=== PATIENT | female | born 1990 | race Caucasian/White ===

== ENCOUNTER 2017-11-21 20:51 | Emergency (ER) | payer SELFPAY ==
[~2017-11-21 20:51] MED LIST: CLON1TAB PO; FLAG500T PO
[2017-11-21 21:04] VITALS: BP 174/90; PULSE 106; RESP 20; TEMP 98.3; O2SAT 100
[2017-11-21 21:20] LABS: BILIRUBIN, URINE NEG (NEG); BLOOD, URINE NEG (NEG); GLUCOSE,URINE NEG (NEG); KETONE, URINE NEG (NEG); NITRITE,URINE NEG (NEG); PH, URINE 5.5 (5.0-8.5); URINE COLOR YELLOW (YELLW/STRAW); URINE LEUKOCYTE ESTERASE NEG (NEG)
[2017-11-21 21:25] LABS: MUCUS URINE MOD /lpf (OCC); RBC, URINE 0-3 /hpf (0-3); SQUAMOUS EPITHELIAL CELL URINE 0-5 /hpf (0-5)
[2017-11-21] MEDS ORDERED: CLON1TAB PO (21:54)
--- NOTE | 2017-11-21 21:54 | PD ---
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 She just finished her menses 2 days ago but continues to have the same order. She has a history of in the past BV she does not think she could be now. She has no cramps no nausea no vomiting or diarrhea. Her and her recently just got over the flu this information was offered by the patient does describe feeling exhausted and tired and body aches denies dysuria denies Frequency denies flank pain she has not seen another doctor for this complaint, she tried to use a pH balancing suppository vaginal [id number] without alleviation of her symptoms PFSH Past Medical History Bipolar Disorder: Yes Anxiety: Yes Depression: Yes Cancer: No Diminished Hearing: No Endocrine: No Immune Disorder: No Implanted Vascular Access Dvce: No Psychiatric: Yes Integumentary: Yes (MRSA) Tetanus Vaccination: < 5 Years ?: Not LMP: 11/16/17 Menopausal: No : 4 Para: 1 Miscarriage: 1 : 1 Ectopic : No Ovarian Cysts: No Dilation and Curettage (D&C): No Tubal Ligation: No Past Surgical History Surgical History: No Previous Surgery Section: No Hysterectomy: No Other Surgery: No Social History Alcohol Use: No Tobacco Use: Yes Substance Use: Yes (COCAINE.) Allergies-Medications (Allergen,Severity, Reaction): Coded Allergies: *MDRO Multi-Drug Resistant Organism (Verified Adverse Reaction, Unknown, ) MRSA PCR (nares) positive - 12/19/15 Reported Meds & Prescriptions Reported Meds & Active Scripts Active Reported Clonazepam 1 Mg Tab 1 Mg PO Q12HR Review of Systems Except as stated in HPI: all other systems reviewed are Neg Genitourinary: Positive: Discharge Physical Exam Narrative GENERAL: Patient nontoxic appearing awake alert SKIN: Warm and dry. HEAD: Atraumatic. Normocephalic. EYES: Pupils equal and round. No scleral icterus. No injection or drainage. ENT: No nasal bleeding or discharge. Mucous membranes pink and moist. NECK: Trachea midline. No JVD. CARDIOVASCULAR: Regular rate and rhythm. RESPIRATORY: No accessory muscle use. Clear to auscultation. Breath sounds equal bilaterally. GASTROINTESTINAL: Abdomen soft, non-tender, nondistended. Hepatic and splenic margins not palpable. Pelvic: Patient has a yellowish discharge snotty like at the cervix introitus there is no blood she has no CMT no fullness in the adnexa with bimanual MUSCULOSKELETAL: Extremities without clubbing, cyanosis, or edema. No obvious deformities. NEUROLOGICAL: Awake and alert. No obvious cranial nerve deficits. Motor grossly within normal limits. Five out of 5 muscle strength in the arms and legs. Normal speech. PSYCHIATRIC: Appropriate mood and affect; insight and judgment normal. Data Data Last Documented VS Vital Signs Date Time Temp Pulse Resp B/P (MAP) Pulse Ox O2 Delivery O2 Flow Rate FiO2 11/21/17 21:04 98.3 106 20 174/90 (118) 100 Orders Orders Urinalysis - C+S If Indicated (11/21/17 21:09) Ed Urine Pregnancytest Poc (11/21/17 21:11) Wet Prep Profile (11/21/17 22:46) Gc And Chlamydia Pcr (11/21/17 22:46) Metronidazole (Flagyl) (11/21/17 23:45) Labs Laboratory Tests Test 11/21/17 21:14 11/21/17 22:50 Urine Color YELLOW Urine Turbidity CLEAR Urine pH 5.5 Urine Specific [place] GREATER/EQUAL 1.030 Urine Protein NEG mg/dL Urine Glucose (UA) NEG mg/dL Urine Ketones NEG mg/dL Urine Occult Blood NEG Urine Nitrite NEG Urine Bilirubin NEG Urine Urobilinogen 0.2 MG/DL Urine Leukocyte Esterase NEG Urine RBC 0-3 /hpf Urine WBC 3-5 /hpf Urine Squamous Epithelial Cells 0-5 /hpf Urine Mucus MOD /lpf Microscopic Urinalysis Comment CULT NOT INDICATED Clue Cells (Wet Prep) PRESENT Vaginal Trichomonas (Wet Prep) NONE SEEN Vaginal Yeast (Wet Prep) NONE SEEN MDM Medical Decision Making Medical Screen Exam Complete: Yes Emergency Medical Condition: Yes Differential Diagnosis Differential diagnoses include Chlamydia gonorrhea cervicitis versus Trichomonas versus BV versus vaginitis NOS Narrative Course Wet prep shows clue cells I will treat her with metronidazole, p.o. THE CULTURES FOR GC chlamydia pending...... UA is negative Her discharge diagnosis is bacterial vaginosis follow-up outpatient [facility] flagyl PO for 1 week Diagnosis Primary Impression: Bacterial vaginosis Patient Instructions: Bacterial Vaginosis (ED), General Instructions Jorge Espinal MD Nov 21, 2017 21:54
[2017-11-21] MEDS ORDERED: metroNIDAZOLE 500 MG TAB PO ONE (23:45)
[2017-11-21] MEDS ORDERED: METR1TAB76 PO (23:51)
[2017-11-21 23:57] VITALS: BP 152/88
== END 2017-11-21 23:59 | disposition home or self-care (01) ==
LOC: PHED 20:51
DX: N76.0 Acute vaginitis (principal)
CPT/HCPCS: 81001; 84703; 87210; 87491; 87591; 99284

== ENCOUNTER 2018-03-09 03:51 | Emergency (ER) | payer OTHER ==
[~2018-03-09 03:51] MED LIST changes: -FLAG500T PO; +METR1TAB76 PO
[2018-03-09 03:53] VITALS: BP 122/69; PULSE 79; RESP 18; TEMP 98.1; TEMP 99.2; O2SAT 100
[2018-03-09 04:20] VITALS: BP 113/67; PULSE 81; RESP 16; O2SAT 100
[2018-03-09 05:09] LABS: AMORPHOUS SEDIMENT, URINE RARE; BACTERIA, URINE RARE /hpf; BILIRUBIN, URINE NEG (NEG); BLOOD, URINE NEG (NEG); GLUCOSE,URINE NEG (NEG); HYALINE CAST, URINE 3 /lpf (RARE); KETONE, URINE NEG (NEG); MUCUS URINE FEW /lpf (OCC); NITRITE,URINE NEG (NEG); SQUAMOUS EPITHELIAL CELL URINE 2 /hpf (0-5); URINE COLOR YELLOW (YELLW/STRAW); URINE LEUKOCYTE ESTERASE NEG (NEG)
[2018-03-09 05:13] LABS: ALBUMIN 3.9 GM/DL (3.4-5.0); ALT (GPT) 36 U/L (10-53); AST (GOT) 25 U/L (15-37); BICARBONATE 22.9 MEQ/L (21.0-32.0); BLOOD UREA NITROGEN 13 MG/DL (7-18); CHLORIDE 107 MEQ/L (98-107); CREATININE 0.75 MG/DL (0.50-1.00); GLOMERULAR FILTRATION RATE 92 ML/MIN (>89); GLUCOSE,RANDOM 78 MG/DL (74-106); SODIUM (NA) 138 MEQ/L (136-145)
[2018-03-09 05:30] LABS: ALKALINE PHOSPHATASE 104 U/L (45-117); TOTAL BILIRUBIN ADULT 0.3 MG/DL (0.2-1.0)
--- NOTE | 2018-03-09 06:36 | PD ---
HPI . pt has abdo pain and Chief Complaint: Abdominal Pain Time Seen by Provider: 03:57 Travel History International Travel<30 days: No Contact w/Intl Traveler<30days: No Traveled to known affect area: No History of Present Illness HPI abdominal pain in custody LMP was over 3 months ago , but never regular in her menses before that PFSH Past Medical History Bipolar Disorder: Yes Anxiety: Yes Depression: Yes Cancer: No Diminished Hearing: No Endocrine: No Immune Disorder: No Implanted Vascular Access Dvce: No Psychiatric: Yes Integumentary: Yes (MRSA) Immunizations Current: Yes ?: Menopausal: No : 4 Para: 1 Miscarriage: 1 : 1 Ectopic : No Ovarian Cysts: No Dilation and Curettage (D&C): No Tubal Ligation: No Past Surgical History Surgical History: No Previous Surgery Section: No Hysterectomy: No Other Surgery: No Social History Alcohol Use: No Tobacco Use: Yes (4 CIGS / DAY) Substance Use: Yes (METH, HEROIN) Allergies-Medications (Allergen,Severity, Reaction): Coded Allergies: *MDRO Multi-Drug Resistant Organism (Verified Adverse Reaction, Unknown, ) MRSA PCR (nares) positive - 12/19/15 Reported Meds & Prescriptions Reported Meds & Active Scripts Active Metronidazole 500 Mg Tab 500 Mg PO BID Reported Clonazepam 1 Mg Tab 1 Mg PO Q12HR Review of Systems Except as stated in HPI: all other systems reviewed are Neg Gastrointestinal: Positive: Abdominal Pain Physical Exam Narrative GENERAL: no acute distress SKIN: Warm and dry. HEAD: Atraumatic. Normocephalic. EYES: Pupils equal and round. No scleral icterus. No injection or drainage. ENT: No nasal bleeding or discharge. Mucous membranes pink and moist. NECK: Trachea midline. No JVD. CARDIOVASCULAR: Regular rate and rhythm. RESPIRATORY: No accessory muscle use. Clear to auscultation. Breath sounds equal bilaterally. GASTROINTESTINAL: Abdomen soft, non-tender, nondistended. Hepatic and splenic margins not palpable. MUSCULOSKELETAL: Extremities without clubbing, cyanosis, or edema. No obvious deformities. NEUROLOGICAL: Awake and alert. No obvious cranial nerve deficits. Motor grossly within normal limits. Five out of 5 muscle strength in the arms and legs. Normal speech. PSYCHIATRIC: Appropriate mood and affect; insight and judgment normal. Data Data Last Documented VS Vital Signs Date Time Temp Pulse Resp B/P (MAP) Pulse Ox O2 Delivery O2 Flow Rate FiO2 03/09/18 04:20 81 16 113/67 (82) 100 Room Air 03/09/18 03:53 99.2 Orders Orders Urinalysis - C+S If Indicated (03/09/18 04:00) Ed Urine Pregnancytest Poc (03/09/18 04:00) Comprehensive Metabolic Panel (03/09/18 04:00) Type And Screen (03/09/18 04:25) Beta Hcg (Quant/Titer) (03/09/18 04:00) Ed Discharge Order (03/09/18 06:50) Labs Laboratory Tests Test 03/09/18 04:15 03/09/18 04:41 Blood Urea Nitrogen 13 MG/DL Creatinine 0.75 MG/DL Random Glucose 78 MG/DL Total Protein 9.0 GM/DL Albumin 3.9 GM/DL Calcium Level 9.0 MG/DL Alkaline Phosphatase 104 U/L Aspartate Amino Transf (AST/SGOT) 25 U/L Alanine Aminotransferase (ALT/SGPT) 36 U/L Total Bilirubin 0.3 MG/DL Sodium Level 138 MEQ/L Potassium Level 4.0 MEQ/L Chloride Level 107 MEQ/L Carbon Dioxide Level 22.9 MEQ/L Anion Gap 8 MEQ/L Estimat Glomerular Filtration Rate 92 ML/MIN Human Chorionic Gonadotropin, Quant 14382 MIU/ML Urine Color YELLOW Urine Turbidity HAZY Urine pH 6.0 Urine Specific [place] 1.026 Urine Protein NEG mg/dL Urine Glucose (UA) NEG mg/dL Urine Ketones NEG mg/dL Urine Occult Blood NEG Urine Nitrite NEG Urine Bilirubin NEG Urine Urobilinogen 2.0 mg/dL Urine Leukocyte Esterase NEG Urine RBC 1 /hpf Urine WBC 4 /hpf Urine Squamous Epithelial Cells 2 /hpf Urine Amorphous Sediment RARE Urine Bacteria RARE /hpf Urine Hyaline Casts 3 /lpf Urine Mucus FEW /lpf Microscopic Urinalysis Comment CULT NOT INDICATED MDM Medical Decision Making Medical Screen Exam Complete: Yes Emergency Medical Condition: Yes Differential Diagnosis ectopic vs threatened abd vs regular vs malingering Narrative Course beta 34,000s bedside POC normal Heart rate on M-Mode was 136 pt reassured and discharged into police custody Diagnosis Primary Impression: Abdominal pain during in first trimester Patient Instructions: Abdominal Pain in (ED), General Instructions Disposition: 01 DISCHARGE HOME Condition: Jorge Talamantes MD Mar 09, 2018 06:36
== END 2018-03-09 06:53 | disposition home or self-care (01) ==
LOC: NEPE 03:51
DX: O26.891 Other specified pregnancy related conditions, first trimester (principal); O99.331 Smoking (tobacco) complicating pregnancy, first trimester; F17.210 Nicotine dependence, cigarettes, uncomplicated; Z3A.00 Weeks of gestation of pregnancy not specified
CPT/HCPCS: 80053; 81001; 84702; 84703; 86850; 86900; 86901; 99283

== ENCOUNTER 2018-07-31 16:17 | Observation (INO) ==
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
[2018-07-31 18:59] LABS: Baso % (Auto) 0.1 % (0.0-2.0); Eos # (Auto) 0.2 th/mm3 (0.0-0.4); Eos % (Auto) 1.8 % (0.0-4.0); Hemoglobin 10.8 gm/dL (11.6-15.3); Lymph # (Auto) 1.3 th/mm3 (1.0-4.8); Lymph % (Auto) 12.6 % (9.0-44.0); Mean Corpuscular HGB Conc 33.6 % (32.0-36.0); Mean Corpuscular Volume 83.5 fL (80.0-100.0); Mean Platelet Volume 7.7 fL (7.0-11.0); Mono # (Auto) 0.5 th/mm3 (0.0-0.9); Mono % (Auto) 4.6 % (0.0-8.0); Neut # (Auto) 8.2 th/mm3 (1.8-7.7); Neut % (Auto) 80.9 % (16.0-70.0); Platelet Count 331 th/mm3 (150-450); Red Blood Count 3.84 mil/mm3 (4.00-5.30); Red Cell Distribution Width 13.8 % (11.6-17.2); White Blood Count 10.2 th/mm3 (4.0-11.0)
[2018-07-31 19:15] LABS: Benzodiazepine Urine With Conf Neg (Neg)
[2018-07-31 19:16] LABS: Bilirubin,Urine Negative (Negative); Clarity,Urine Clear (Clear); Color,Urine Yellow (Yellw/Straw); Glucose,Urine (UA) Negative (Negative); Leukocyte Esterase,Urine Negative (Negative); Mucus,Urine Few /lpf (Occasional); Nitrite,Urine Negative (Negative); Specific Gravity,Urine 1.012 (1.002-1.035); Squamous Epithelial Cell,Urine 1 /hpf (0-5)
[2018-07-31] MEDS: Vancomycin Inj 1,000 MG in Sodium Chlor 0.9% Inj 250 ML IV.SIG SCH (19:31)
[2018-07-31 19:33] LABS: Free T4 (Free Thyroxine) 0.93 ng/dL (0.76-1.46); Thyroid Stimulating Hormone 1.88 uIU/mL (0.358-3.740)
[2018-07-31 19:35] LABS: Amphetamine Urine With Conf Pos (Neg)
[2018-07-31] MEDS: clonazePAM 1 MG Tablet PO PRN (20:40)
[2018-07-31 20:53] LABS: Rubella IgG Antibody 37.3 IU/mL (10.0-500.0)
[2018-07-31 21:22] LABS: Hepatitits B Surface Antigen Nonreactive (Nonreactive)
[2018-07-31 21:41] LABS: Hepatitis A IgM Antibody Nonreactive (Nonreactive)
[2018-08-01] MEDS: Famotidine PF Inj 20 MG/2 ML Vial IV.PUSH SCH ×3 (02:41→20:34)
--- NOTE | 2018-08-01 07:35 | P.HPOB ---
History of Present Illness Service: antepartum Primary Care Physician: No Primary Care Physician Chief Complaint: 28 weeks ; active heroin and meth addiction/nausea, vomiting and pa History of Present Illness: 28 yo swf at 28 weeks EGA. Full H& P dictated but not yet transcribed. She has been in practice since 17 weeks. Attempt to transition to MAT and avoid IVDA not yet successful. Actively using. Has severe nausea, vomiting, abdominal pain and malaise. Many boils and skin eruptions. No labs drawn yet. Admitted for sepsis work up and evaluation and emperic antibiotics. PMFSH - Tobacco History Smoking Status: Smoker, status unknown - Substance Use History Substance History: No History of Abuse, Active Abuse - Travel History History of Recent Travel: No Recent Travel in the [place] Within the Last 8 Weeks: No Recent Travel Out of the Country Within the Last 8 Weeks: No - Immunization History Tetanus Immunization: Unsure Hx Influenza Vaccine This Season: No Medications and Allergies Active Medications: Active Medications Buprenorphine HCl (Buprenorphine) 8 mg SL TID [facility] Last Admin: 07/31/18 19:31 Dose: 8 mg Clonazepam (Klonopin) 1 mg PO Q4H PRN PRN Reason: ANXIETY Last Admin: 07/31/18 20:40 Dose: 1 mg Diphenhydramine HCl (Benadryl Inj) 50 mg IV.PUSH Q6H PRN PRN Reason: ITCHING Famotidine (Pepcid Pf Inj) 20 mg IV.PUSH Q12HR [facility] Last Admin: 08/01/18 02:41 Dose: Not Given Hydroxyzine Pamoate (Vistaril) 50 mg PO Q4H PRN PRN Reason: ANXIETY Last Admin: 08/01/18 02:40 Dose: 50 mg Lactated Ringer's (Lr 1000 Ml Inj) 1,000 mls @ 125 mls/hr IV.SIG .Q8H [facility] Last Admin: 08/01/18 06:12 Dose: 125 mls/hr Vancomycin HCl 1,000 mg/ (Sodium Chloride) 250 mls @ 250 mls/hr IV.SIG Q12H [facility] Stop: 08/01/18 20:59 Last Admin: 07/31/18 19:31 Dose: 250 mls/hr Lurasidone HCl (Latuda) 20 mg PO DAILY [facility] Vit/Calcium/Iron/Folic Ac (Stuartnatal Plus 3) 1 tab PO DAILY [facility] Promethazine HCl (Phenergan) 25 mg PO Q6H PRN PRN Reason: NAUSEA Promethazine HCl (Phenergan Inj) 25 mg IM Q6H PRN PRN Reason: NAUSEA;IF UNABLE TO USE PO Sertraline HCl (Zoloft) 50 mg PO DAILY [facility] Allergies Allergy/AdvReac Type Severity Reaction Status Date / Time No Known Allergies Allergy Verified 07/31/18 17:07 Home Medications Medication Instructions Recorded Confirmed Type No Known Home Medications 07/31/18 07/31/18 History Exam Vital signs: Vital Signs 07/31/18 17:15 07/31/18 17:30 07/31/18 17:45 Temperature 99.0 F 99.0 F Pulse Rate 81 Respiratory Rate 16 Blood Pressure 110/55 L 07/31/18 19:00 07/31/18 19:44 07/31/18 21:00 Temperature 98.5 F Pulse Rate 93 H Respiratory Rate 20 18 18 Blood Pressure 111/48 L 07/31/18 23:30 08/01/18 03:00 08/01/18 05:00 Temperature 98.7 F Pulse Rate 81 Respiratory Rate 18 18 18 Blood Pressure 102/48 L 08/01/18 06:56 08/01/18 06:57 Temperature 98.1 F Pulse Rate 70 Respiratory Rate 18 Blood Pressure 93/44 L Intake & Output 07/31/18 08/01/18 08/01/18 18:59 06:59 18:59 Intake Total 1000 / 1000 Balance 1000 / 1000 Weight 64 kg Intake: IV 1000 / 1000 LR 1000 mL Inj 1,000 ML @ 125 1000 / 1000 mls/hr IV.SIG .Q8H [facility] Rx#: [id number] Other: Weight On Admission 64 kg Results - Labs CBC & Chem 7: 07/31/18 17:15 Labs: Laboratory Results - last 24 hr 07/31/18 07/31/18 07/31/18 17:15 17:15 17:15 WBC 10.2 RBC 3.84 L Hgb 10.8 L Hct 32.0 L MCV 83.5 MCH 28.0 MCHC 33.6 RDW 13.8 Plt Count 331 MPV 7.7 Neut % (Auto) 80.9 H Lymph % (Auto) 12.6 [place] % (Auto) 4.6 Eos % (Auto) 1.8 Baso % (Auto) 0.1 Neut # (Auto) 8.2 H Lymph # (Auto) 1.3 [place] # (Auto) 0.5 Eos # (Auto) 0.2 Baso # (Auto) 0.0 WBC Differential . Differential Comment Auto diff final TSH Free T4 Urine Color Urine Clarity Urine pH Ur Specific [place] Urine Protein Urine Glucose (UA) Urine Ketones Urine Occult Blood Urine Nitrate Urine Bilirubin Urine Urobilinogen Ur Leukocyte Esterase Urine RBC Ur Squamous Epith Cells Urine Mucus Micro UA Comment Ur Microscopic Review Urine Culture Comments Urine Opiates Screen Ur Barbiturates Screen Ur Amphetamine Screen U Benzodiazepines Scrn Urine Cocaine Screen U Cannabinoids Screen Chlam trachomat DNA PCR Hepatitis A IgM Ab Nonreactive Hep Bs Antigen Nonreactive Hep B Core IgM Ab Nonreactive Hep C IgG Ab Reactive H HIV 1&2 Ab/P24 Ag 4thGn Nonreactive N.gonorrhoeae DNA (PCR) Rubella Immunity Screen Immune Rubella Ab, Quant 37.3 Blood Type Antibody Screen 07/31/18 07/31/18 07/31/18 17:15 17:15 17:15 WBC RBC Hgb Hct MCV MCH MCHC RDW Plt Count MPV Neut % (Auto) Lymph % (Auto) [place] % (Auto) Eos % (Auto) Baso % (Auto) Neut # (Auto) Lymph # (Auto) [place] # (Auto) Eos # (Auto) Baso # (Auto) WBC Differential Differential Comment TSH 1.880 Free T4 Cancelled 0.93 Urine Color Urine Clarity Urine pH Ur Specific [place] Urine Protein Urine Glucose (UA) Urine Ketones Urine Occult Blood Urine Nitrate Urine Bilirubin Urine Urobilinogen Ur Leukocyte Esterase Urine RBC Ur Squamous Epith Cells Urine Mucus Micro UA Comment Ur Microscopic Review Urine Culture Comments Urine Opiates Screen Ur Barbiturates Screen Ur Amphetamine Screen U Benzodiazepines Scrn Urine Cocaine Screen U Cannabinoids Screen Chlam trachomat DNA PCR Hepatitis A IgM Ab Hep Bs Antigen Hep B Core IgM Ab Hep C IgG Ab HIV 1&2 Ab/P24 Ag 4thGn N.gonorrhoeae DNA (PCR) Rubella Immunity Screen Rubella Ab, Quant Blood Type A Positive Antibody Screen Negative 07/31/18 07/31/18 07/31/18 18:20 18:20 18:20 WBC RBC Hgb Hct MCV MCH MCHC RDW Plt Count MPV Neut % (Auto) Lymph % (Auto) [place] % (Auto) Eos % (Auto) Baso % (Auto) Neut # (Auto) Lymph # (Auto) [place] # (Auto) Eos # (Auto) Baso # (Auto) WBC Differential Differential Comment TSH Free T4 Urine Color Yellow Urine Clarity Clear Urine pH 6.0 Ur Specific [place] 1.012 Urine Protein Negative Urine Glucose (UA) Negative Urine Ketones Negative Urine Occult Blood Negative Urine Nitrate Negative Urine Bilirubin Negative Urine Urobilinogen Less than 2 Ur Leukocyte Esterase Negative Urine RBC Less than 1 Ur Squamous Epith Cells 1 Urine Mucus Few H Micro UA Comment Culture not ind Ur Microscopic Review Not Reportable Urine Culture Comments Culture not ind Urine Opiates Screen Pos H Ur Barbiturates Screen Neg Ur Amphetamine Screen Pos H U Benzodiazepines Scrn Neg Urine Cocaine Screen Neg U Cannabinoids Screen Neg Chlam trachomat DNA PCR Not detected Hepatitis A IgM Ab Hep Bs Antigen Hep B Core IgM Ab Hep C IgG Ab HIV 1&2 Ab/P24 Ag 4thGn N.gonorrhoeae DNA (PCR) Not detected Rubella Immunity Screen Rubella Ab, Quant Blood Type Antibody Screen Caprini VTE Risk Assessment Caprini VTE Risk Assessment: No/Low Risk (score <= 1) Caprini Risk Assessment Model: Point Value = 1 Point Value = 2 Point Value = 3 Point Value = 5 Age 41-60 Minor surgery BMI > 25 kg/m2 Swollen legs Varicose veins or History of unexplained or recurrent spontaneous Oral contraceptives or hormone replacement Sepsis (< 1 month) Serious lung disease, including pneumonia (< 1 month) Abnormal pulmonary function Acute myocardial infarction Congestive heart failure (< 1 month) History of inflammatory bowel disease Medical patient at bed rest Age 61-74 Arthroscopic surgery Major open surgery (> 45 min) Laparoscopic surgery (> 45 min) Malignancy Confined to bed (> 72 hours) Immobilizing plaster cast Central venous access Age >= 75 History of VTE Family history of VTE Factor V Leiden Prothrombin [id number] Lupus anticoagulant Anticardiolipin antibodies Elevated serum homocysteine Heparin-induced thrombocytopenia Other congenital or acquired thrombophilia Stroke (< 1 month) Elective arthroplasty Hip, pelvis, or leg fracture Acute spinal cord injury (< 1 month) Prophylaxis Regimen: Total Risk Factor Score Risk Level Prophylaxis Regimen 0-1 Low Early ambulation 2 Moderate Order ONE of the following: *Sequential Compression Device (SCD) *Heparin 5000 units SQ BID 3-4 Higher Order ONE of the following medications: *Heparin 5000 units SQ TID *Enoxaparin/Lovenox 40 mg SQ daily (WT < 150 kg, CrCl > 30 mL/min) *Enoxaparin/Lovenox 30 mg SQ daily (WT < 150 kg, CrCl > 10-29 mL/min) *Enoxaparin/Lovenox 30 mg SQ BID (WT < 150 kg, CrCl > 30 mL/min) AND/OR *Sequential Compression Device (SCD) 5 or more Highest Order ONE of the following medications: *Heparin 5000 units SQ TID (Preferred with Epidurals) *Enoxaparin/Lovenox 40 mg SQ daily (WT < 150 kg, CrCl > 30 mL/min) *Enoxaparin/Lovenox 30 mg SQ daily (WT < 150 kg, CrCl > 10-29 mL/min) *Enoxaparin/Lovenox 30 mg SQ BID (WT < 150 kg, CrCl > 30 mL/min) AND *Sequential Compression Device (SCD)
[2018-08-01] MEDS: Vancomycin Inj 1,000 MG in Sodium Chlor 0.9% Inj 250 ML IV.SIG SCH ×2 (08:55→20:36)
[2018-08-01] MEDS: Sertraline 50 MG Tablet PO SCH (08:55)
[2018-08-01] MEDS: Prenatal Vit/Ca/Iron/Folic Acid Tablet PO SCH (08:55)
[2018-08-01] MEDS ORDERED: LORazepam 1 MG Tablet PO PRN (09:06)
[2018-08-01] MEDS: clonazePAM 1 MG Tablet PO PRN ×2 (10:24→20:34)
--- NOTE | 2018-08-01 18:16 | ECHRPT ---
Indication: POSS SEPSIS, ENDOCARDITIS CONCLUSIONS The left ventricular systolic function is hyperdynamic with an estimated ejection fraction in the ra nge of 65- 70%. Trace mitral valve regurgitation. There is mild tricuspid valve regurgitation. BP: / HR: Rhythm: Sinus MEASUREMENTS (Male / Female) Normal Values Technical Quality:Fair 2D ECHO LV Diastolic Diameter PLAX 5.2 cm 4.2 - 5.9 / 3.9 - 5.3 cm LV Systolic Diameter PLAX 3.4 cm IVS Diastolic Thickness 0.8 cm 0.6 - 1.0 / 0.6 - 0.9 cm LVPW Diastolic Thickness 0.8 cm 0.6 - 1.0 / 0.6 - 0.9 cm LV Relative Wall Thickness 0.3 RV Internal Dim ED PLAX 3.2 cm LVOT Diameter 1.8 cm Aortic Root Diameter 2.8 cm LA Systolic Diameter LX 4.0 cm 3.0 - 4.0 / 2.7 - 3.8 cm M-MODE AV Cusp Separation MM 2.0 cm DOPPLER TR Peak Velocity 228.0 cm/s TR Peak Gradient 20.8 mmHg Right Atrial Pressure 10.0 mmHg Pulmonary Artery Systolic Pressu 30.8 mmHg Right Ventricular Systolic Press 30.8 mmHg PV Peak Velocity 85.0 cm/s PV Peak Gradient 2.9 mmHg FINDINGS LEFT VENTRICLE Normal left ventricular size. Wall thickness is normal. The left ventricular systolic function is hyperdynamic with an estimated ejection fraction in the ra nge of 65- 70%. No regional wall motion abnormalities are present. RIGHT VENTRICLE Normal right ventricular size and systolic function. LEFT ATRIUM The left atrial size is normal. RIGHT ATRIUM The right atrial size is normal. ATRIAL SEPTUM The interatrial septum not well visualized. AORTA The aortic root and proximal ascending aorta are normal in size on limited imaging. MITRAL VALVE Structurally normal mitral valve. Trace mitral valve regurgitation. No mitral valve stenosis. AORTIC VALVE Trileaflet aortic valve. No aortic valve stenosis or regurgitation. TRICUSPID VALVE Structurally normal tricuspid valve. There is mild tricuspid valve regurgitation. The estimated pulmonary arterial pressure is 30.8 mmHg. PULMONARY VALVE No pulmonary valve regurgitation or stenosis. VESSELS The inferior vena cava was not well visualized. PERICARDIUM No pericardial effusion. Arnold Singh DO (Electronically Signed) Final Date:01 August 2018 18:14
--- NOTE | 2018-08-01 18:31 | P.OBANTE ---
Subjective Interval History: Addressed plan this morning with patient, but did not write a note. At that time discussed her restless legs, back pain and withdrawal symptoms. She had been using at least a quarter bag heroin on top of the 24 mg subutex daily and had come in to office dehydrated with nausea, vomiting, abdominal pain and skin eruptions. started vancomycin last night. Nasal swab was positive for MRSA Level 3 sonogram reassuring. Maternal echo reassuring. She was agitated this am and medicated every two hours. Then quiet from 1pm until 6pm RN found IV wide open, consistent with need to flush an injected substance. She and her partner were confronted and emphatically deny. UDS taken. She wants to leave as she is actively withdrawing and wants to use. We are ordering nicotine patch, administering visteral and if needed gabapentin. Encouraging shower. Needs to continue vanco for at least one more dose. Antepartum ROS: Reports: movement normal Objective Vital Signs and I&O: Vital Signs 07/31/18 19:00 07/31/18 19:44 07/31/18 21:00 Temperature 98.5 F Pulse Rate 93 H Respiratory Rate 20 18 18 Blood Pressure 111/48 L 07/31/18 23:30 08/01/18 03:00 08/01/18 05:00 Temperature 98.7 F Pulse Rate 81 Respiratory Rate 18 18 18 Blood Pressure 102/48 L 08/01/18 06:56 08/01/18 06:57 08/01/18 09:00 Temperature 98.1 F 98.7 F Pulse Rate 70 66 Respiratory Rate 18 18 Blood Pressure 93/44 L 98/43 L 08/01/18 09:06 08/01/18 11:58 08/01/18 11:59 Temperature 98.3 F Pulse Rate 66 75 Respiratory Rate 20 Blood Pressure 111/60 08/01/18 16:00 Temperature 98.4 F Pulse Rate 62 Respiratory Rate 16 Blood Pressure 109/57 L Intake & Output 07/31/18 08/01/18 08/01/18 18:59 06:59 18:59 Intake Total 1250 / 1250 1250 / 1250 Balance 1250 / 1250 1250 / 1250 Weight 64 kg Intake: IV 1250 / 1250 1250 / 1250 LR 1000 mL Inj 1,000 ML @ 125 1000 / 1000 1000 / 1000 mls/hr IV.SIG .Q8H [facility] Rx#: [id number] Vancomycin Inj 1,000 MG In NS 250 / 250 250 / 250 Inj 250 ML @ 250 mls/hr IV.SIG Q12H [facility] Rx#:[id number] Other: Weight On Admission 64 kg Lab and Micro Results: Laboratory Results - last 24 hr 07/31/18 07/31/18 07/31/18 17:15 17:15 17:15 WBC 10.2 RBC 3.84 L Hgb 10.8 L Hct 32.0 L MCV 83.5 MCH 28.0 MCHC 33.6 RDW 13.8 Plt Count 331 MPV 7.7 Neut % (Auto) 80.9 H Lymph % (Auto) 12.6 [place] % (Auto) 4.6 Eos % (Auto) 1.8 Baso % (Auto) 0.1 Neut # (Auto) 8.2 H Lymph # (Auto) 1.3 [place] # (Auto) 0.5 Eos # (Auto) 0.2 Baso # (Auto) 0.0 WBC Differential . Differential Comment Auto diff final TSH Free T4 Urine Color Urine Clarity Urine pH Ur Specific [place] Urine Protein Urine Glucose (UA) Urine Ketones Urine Occult Blood Urine Nitrate Urine Bilirubin Urine Urobilinogen Ur Leukocyte Esterase Urine RBC Ur Squamous Epith Cells Urine Mucus Micro UA Comment Ur Microscopic Review Urine Culture Comments Nasal Screen MRSA (PCR) Urine Opiates Screen Ur Barbiturates Screen Ur Amphetamine Screen U Benzodiazepines Scrn Urine Cocaine Screen U Cannabinoids Screen RPR Chlam trachomat DNA PCR Hepatitis A IgM Ab Nonreactive Hep Bs Antigen Nonreactive Hep B Core IgM Ab Nonreactive Hep C IgG Ab Reactive H HIV 1&2 Ab/P24 Ag 4thGn Nonreactive N.gonorrhoeae DNA (PCR) Rubella Immunity Screen Immune Rubella Ab, Quant 37.3 Blood Type Antibody Screen 07/31/18 07/31/18 07/31/18 17:15 17:15 17:15 WBC RBC Hgb Hct MCV MCH MCHC RDW Plt Count MPV Neut % (Auto) Lymph % (Auto) [place] % (Auto) Eos % (Auto) Baso % (Auto) Neut # (Auto) Lymph # (Auto) [place] # (Auto) Eos # (Auto) Baso # (Auto) WBC Differential Differential Comment TSH Free T4 Cancelled Urine Color Urine Clarity Urine pH Ur Specific [place] Urine Protein Urine Glucose (UA) Urine Ketones Urine Occult Blood Urine Nitrate Urine Bilirubin Urine Urobilinogen Ur Leukocyte Esterase Urine RBC Ur Squamous Epith Cells Urine Mucus Micro UA Comment Ur Microscopic Review Urine Culture Comments Nasal Screen MRSA (PCR) Urine Opiates Screen Ur Barbiturates Screen Ur Amphetamine Screen U Benzodiazepines Scrn Urine Cocaine Screen U Cannabinoids Screen RPR Nonreactive Chlam trachomat DNA PCR Hepatitis A IgM Ab Hep Bs Antigen Hep B Core IgM Ab Hep C IgG Ab HIV 1&2 Ab/P24 Ag 4thGn N.gonorrhoeae DNA (PCR) Rubella Immunity Screen Rubella Ab, Quant Blood Type A Positive Antibody Screen Negative 07/31/18 07/31/18 07/31/18 17:15 18:20 18:20 WBC RBC Hgb Hct MCV MCH MCHC RDW Plt Count MPV Neut % (Auto) Lymph % (Auto) [place] % (Auto) Eos % (Auto) Baso % (Auto) Neut # (Auto) Lymph # (Auto) [place] # (Auto) Eos # (Auto) Baso # (Auto) WBC Differential Differential Comment TSH 1.880 Free T4 0.93 Urine Color Urine Clarity Urine pH Ur Specific [place] Urine Protein Urine Glucose (UA) Urine Ketones Urine Occult Blood Urine Nitrate Urine Bilirubin Urine Urobilinogen Ur Leukocyte Esterase Urine RBC Ur Squamous Epith Cells Urine Mucus Micro UA Comment Ur Microscopic Review Urine Culture Comments Nasal Screen MRSA (PCR) Urine Opiates Screen Pos H Ur Barbiturates Screen Neg Ur Amphetamine Screen Pos H U Benzodiazepines Scrn Neg Urine Cocaine Screen Neg U Cannabinoids Screen Neg RPR Chlam trachomat DNA PCR Not detected Hepatitis A IgM Ab Hep Bs Antigen Hep B Core IgM Ab Hep C IgG Ab HIV 1&2 Ab/P24 Ag 4thGn N.gonorrhoeae DNA (PCR) Not detected Rubella Immunity Screen Rubella Ab, Quant Blood Type Antibody Screen 07/31/18 08/01/18 18:20 06:45 WBC RBC Hgb Hct MCV MCH MCHC RDW Plt Count MPV Neut % (Auto) Lymph % (Auto) [place] % (Auto) Eos % (Auto) Baso % (Auto) Neut # (Auto) Lymph # (Auto) [place] # (Auto) Eos # (Auto) Baso # (Auto) WBC Differential Differential Comment TSH Free T4 Urine Color Yellow Urine Clarity Clear Urine pH 6.0 Ur Specific [place] 1.012 Urine Protein Negative Urine Glucose (UA) Negative Urine Ketones Negative Urine Occult Blood Negative Urine Nitrate Negative Urine Bilirubin Negative Urine Urobilinogen Less than 2 Ur Leukocyte Esterase Negative Urine RBC Less than 1 Ur Squamous Epith Cells 1 Urine Mucus Few H Micro UA Comment Culture not ind Ur Microscopic Review Not Reportable Urine Culture Comments Culture not ind Nasal Screen MRSA (PCR) Mrsa detected Urine Opiates Screen Ur Barbiturates Screen Ur Amphetamine Screen U Benzodiazepines Scrn Urine Cocaine Screen U Cannabinoids Screen RPR Chlam trachomat DNA PCR Hepatitis A IgM Ab Hep Bs Antigen Hep B Core IgM Ab Hep C IgG Ab HIV 1&2 Ab/P24 Ag 4thGn N.gonorrhoeae DNA (PCR) Rubella Immunity Screen Rubella Ab, Quant Blood Type Antibody Screen Physical Exam: GENERAL: Well-nourished, well-developed patient. CARDIOVASCULAR: Regular rate and rhythm without murmurs, gallops, or rubs. RESPIRATORY: Breath sounds equal bilaterally. No accessory muscle use. ABDOMEN/GI: Abdomen soft, non-tender. fundus consistent with dates EXTREMITIES: No cyanosis or edema, non-tender, without signs of DVT. Assessment and Plan - Diagnosis (1) 28 weeks gestation of Code(s): Z3A.28 - 28 weeks gestation of Status: Acute (2) Abdominal pain affecting , antepartum Code(s): O26.899 - Other specified related conditions, unspecified trimester; R10.9 - Unspecified abdominal pain Status: Acute (3) Opioid use disorder, severe, dependence Code(s): F11.20 - Opioid dependence, uncomplicated Status: Acute - Plan treat acute physical withdrawal treat infection monitor baby re evaluate in morning
[2018-08-01 19:56] LABS: Barbiturate Screen,Urine Neg (Neg); Cannabinoid Screen,Urine Neg (Neg); Cocaine Screen,Urine Neg (Neg)
[2018-08-01 19:57] LABS: Amphetamine Screen,Urine Neg (Neg)
[2018-08-01 20:19] LABS: Opiate Screen,Urine Neg (Neg)
--- NOTE | 2018-08-02 08:24 | P.OBANTE ---
Subjective Interval History: Had a quiet note. UDS from last night did not show new opiates. She is currently sleeping. Objective Vital Signs and I&O: Vital Signs 08/01/18 09:00 08/01/18 09:06 08/01/18 11:58 Temperature 98.7 F 98.3 F Pulse Rate 66 66 Respiratory Rate 18 20 Blood Pressure 98/43 L 08/01/18 11:59 08/01/18 16:00 08/01/18 20:15 Temperature 98.4 F 98.5 F Pulse Rate 75 62 Respiratory Rate 16 Blood Pressure 111/60 109/57 L 08/01/18 20:16 08/02/18 02:02 Temperature Pulse Rate 73 68 Respiratory Rate 16 16 Blood Pressure 111/47 L 95/49 L Intake & Output 08/01/18 08/02/18 08/02/18 18:59 06:59 18:59 Intake Total 1250 / 1250 1999 / 1999 Balance 1250 / 1250 1999 / 1999 Intake: IV 1250 / 1250 1999 / 1999 LR 1000 mL Inj 1,000 ML @ 125 1000 / 1000 2000 / 2000 mls/hr IV.SIG .Q8H [facility] Rx#: [id number] Vancomycin Inj 1,000 MG In NS 250 / 250 Inj 250 ML @ 250 mls/hr IV.SIG Q12H [facility] Rx#:[id number] Lab and Micro Results: Laboratory Results - last 24 hr 07/31/18 08/01/18 08/01/18 17:15 06:45 18:20 Nasal Screen MRSA (PCR) Mrsa detected Urine Opiates Screen Neg Ur Barbiturates Screen Neg Ur Amphetamines Screen Neg U Benzodiazepines Scrn Neg Urine Cocaine Screen Neg U Cannabinoids Screen Neg RPR Nonreactive Physical Exam: GENERAL: Well-nourished, well-developed patient. CARDIOVASCULAR: Regular rate and rhythm without murmurs, gallops, or rubs. RESPIRATORY: Breath sounds equal bilaterally. No accessory muscle use. ABDOMEN/GI: Abdomen soft, non-tender. Fundus: [-] GENITOURINARY: External Genitalia: intact and normal in appearance strip reactive when on monitor with no decels no contractions EXTREMITIES: No cyanosis or edema, non-tender, without signs of DVT. many skin eruptions, breakdowns, boils and track gomez Assessment and Plan - Diagnosis (1) 28 weeks gestation of Code(s): Z3A.28 - 28 weeks gestation of Status: Acute (2) Abdominal pain affecting , antepartum Code(s): O26.899 - Other specified related conditions, unspecified trimester; R10.9 - Unspecified abdominal pain Status: Acute (3) Opioid use disorder, severe, dependence Code(s): F11.20 - Opioid dependence, uncomplicated Status: Acute - Plan treat acute physical withdrawal treat infection monitor baby re evaluate in morning 08/02/18 0830 No fever or chills. Will repeat labs to see if left shift better after third dose vancomycin will stop antibiotics and prepare for discharge issues of dual diagnosis and mental health treatment to be addressed today. she will not follow through with a therapist or psychiatrist but will hopefully take a SSRNI or mood stabilizer.
[2018-08-02] MEDS: Prenatal Vit/Ca/Iron/Folic Acid Tablet PO SCH (08:36)
[2018-08-02] MEDS: Famotidine PF Inj 20 MG/2 ML Vial IV.PUSH SCH (08:36)
[2018-08-02] MEDS: Sertraline 50 MG Tablet PO SCH (08:36)
[2018-08-02] MEDS: Gabapentin 300 MG Capsule PO PRN ×2 (09:11→18:45)
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
[2018-08-02] MEDS: clonazePAM 0.5 MG Tablet PO PRN ×2 (11:20→19:38)
[2018-08-02] MEDS: Famotidine 20 MG Tablet PO SCH (20:46)
[2018-08-02] MEDS ORDERED: traZODone 100 MG Tablet PO ONE (22:00)
--- NOTE | 2018-08-03 07:55 | P.OBANTE ---
Subjective Interval History: She had a quiet night after trazedone. I have emailed and texted the administration at the [facility] and [facility] to ask for an expedited transfer to assessment and residential. It is my expert opinion that she will be lost if she is discharged to her own devices. She is clean from heroin for 4 days now and much more clear minded. I am prescribing only meds that are allowed at [facility]. I have discussed all this with her today. We are waiting for a response. Objective Vital Signs and I&O: Vital Signs 08/02/18 08:32 08/02/18 08:33 08/02/18 11:22 Temperature 98.0 F 98.2 F Pulse Rate 68 Respiratory Rate 16 14 Blood Pressure 99/55 L 08/02/18 11:23 08/02/18 18:00 08/02/18 19:37 Temperature 97.7 F 98.2 F Pulse Rate 77 69 Respiratory Rate 16 16 Blood Pressure 113/46 L 111/64 08/02/18 19:38 08/02/18 21:55 08/02/18 21:59 Temperature 98.0 F Pulse Rate 74 78 Respiratory Rate 16 Blood Pressure 102/53 L 109/56 L 08/03/18 04:21 Temperature 97.8 F Pulse Rate 59 L Respiratory Rate 16 Blood Pressure 92/46 L Lab and Micro Results: Laboratory Results - last 24 hr 07/31/18 17:15 Thyroglobulin Antibody Less than 1 Thyroid Peroxidase Ab 1 Physical Exam: GENERAL: Well-nourished, well-developed patient. CARDIOVASCULAR: Regular rate and rhythm without murmurs, gallops, or rubs. RESPIRATORY: Breath sounds equal bilaterally. No accessory muscle use. ABDOMEN/GI: Abdomen soft, non-tender. Fundus: [-] GENITOURINARY: External Genitalia: intact and normal in appearance Cervix: [-] Dilatation: [-] Effacement: [-] Station: [-] Presentation: [-] Membranes: [-] Uterine Contractions: [-] FHT's: Category: [-] Baseline: [-] Reactive: [-] Variability: [-] Decels: [-] EXTREMITIES: No cyanosis or edema, non-tender, without signs of DVT. Assessment and Plan - Diagnosis (1) 28 weeks gestation of Code(s): Z3A.28 - 28 weeks gestation of Status: Acute (2) Abdominal pain affecting , antepartum Code(s): O26.899 - Other specified related conditions, unspecified trimester; R10.9 - Unspecified abdominal pain Status: Acute (3) Opioid use disorder, severe, dependence Code(s): F11.20 - Opioid dependence, uncomplicated Status: Acute - Plan treat acute physical withdrawal treat infection monitor baby re evaluate in morning 08/02/18 0830 No fever or chills. Will repeat labs to see if left shift better after third dose vancomycin will stop antibiotics and prepare for discharge issues of dual diagnosis and mental health treatment to be addressed today. she will not follow through with a therapist or psychiatrist but will hopefully take a SSRNI or mood stabilizer.
[2018-08-03] MEDS: Prenatal Vit/Ca/Iron/Folic Acid Tablet PO SCH (09:12)
[2018-08-03] MEDS: clonazePAM 0.5 MG Tablet PO PRN ×2 (09:12→15:53)
[2018-08-03] MEDS: Sertraline 50 MG Tablet PO SCH (09:13)
[2018-08-03] MEDS: Gabapentin 300 MG Capsule PO PRN ×2 (09:13→17:05)
[2018-08-03] MEDS: Acetaminophen 325 MG Tablet PO PRN (21:15)
[2018-08-03] MEDS: Famotidine 20 MG Tablet PO SCH (21:15)
[2018-08-03] MEDS: traZODone 100 MG Tablet PO PRN (21:59)
[2018-08-04] MEDS: Sertraline 50 MG Tablet PO SCH (09:29)
[2018-08-04] MEDS: Prenatal Vit/Ca/Iron/Folic Acid Tablet PO SCH (09:29)
[2018-08-04] MEDS: Gabapentin 300 MG Capsule PO PRN ×2 (11:06→19:38)
[2018-08-04] MEDS: clonazePAM 0.5 MG Tablet PO PRN (12:33)
[2018-08-04] MEDS: Acetaminophen 325 MG Tablet PO PRN (12:38)
--- NOTE | 2018-08-04 14:35 | P.OBANTE ---
Subjective Interval History: Doing well, I want to go home and spend the holiday with my family. My mom is going to get my son and I want to hang out with them After the [facility] am going [facility]. Antepartum ROS: Reports: movement normal Objective Vital Signs and I&O: Vital Signs 08/03/18 18:00 08/03/18 20:24 08/04/18 01:36 Temperature 97.8 F 98.2 F 97.9 F Pulse Rate 70 74 Respiratory Rate 18 18 16 Blood Pressure 102/47 L 105/54 L 08/04/18 01:37 08/04/18 09:24 08/04/18 13:51 Temperature 98.7 F Pulse Rate 62 57 L Respiratory Rate 14 16 Blood Pressure 103/47 L 98/53 L 08/04/18 13:56 08/04/18 13:57 Temperature 97.8 F Pulse Rate 60 Respiratory Rate 16 Blood Pressure 107/50 L Physical Exam: GENERAL: Well-nourished, well-developed patient. CARDIOVASCULAR: Regular rate and rhythm without murmurs, gallops, or rubs. RESPIRATORY: Breath sounds equal bilaterally. No accessory muscle use. ABDOMEN/GI: Abdomen soft, non-tender. Fundus: [soft and non tender] Category: [1] Baseline: [-] Reactive: [-] Variability: [-] Decels: [-] EXTREMITIES: No cyanosis or edema, non-tender, without signs of DVT.
[2018-08-04 18:14] LABS: Baso # (Auto) 0.1 th/mm3 (0.0-0.2); Baso % (Auto) 0.7 % (0.0-2.0); Eos # (Auto) 0.3 th/mm3 (0.0-0.4); Eos % (Auto) 3.5 % (0.0-4.0); Hematocrit 31.5 % (35.0-46.0); Hemoglobin 10.7 gm/dL (11.6-15.3); Lymph # (Auto) 1.9 th/mm3 (1.0-4.8); Mean Corpuscular HGB Conc 33.9 % (32.0-36.0); Mean Corpuscular Hemoglobin 27.6 pg (27.0-34.0); Mean Corpuscular Volume 81.5 fL (80.0-100.0); Mean Platelet Volume 7.9 fL (7.0-11.0); Mono # (Auto) 0.5 th/mm3 (0.0-0.9); Mono % (Auto) 6.7 % (0.0-8.0); Neut # (Auto) 5.1 th/mm3 (1.8-7.7); Neut % (Auto) 65.1 % (16.0-70.0); Platelet Count 319 th/mm3 (150-450); Red Blood Count 3.86 mil/mm3 (4.00-5.30); Red Cell Distribution Width 13.5 % (11.6-17.2); White Blood Count 7.8 th/mm3 (4.0-11.0)
[2018-08-04] MEDS: traZODone 100 MG Tablet PO PRN (21:04)
[2018-08-04] MEDS: Famotidine 20 MG Tablet PO SCH (21:04)
--- NOTE | 2018-08-04 21:04 | P.CONPSY ---
Provisional Diagnosis Admission Date: July 31, 2018 16:17 [place] I.: opiate use disorder severe bipolar disorder, unspecified Anxiety disorder, unspecified History of Present Illness Service: psychiatry Consult date: 08/04/18 Reason for Consult: addiction Primary Care Provider: No Primary Care Physician Chief Complaint: 28 weeks ; active heroin and meth addiction/nausea, vomiting and pa History of Present Illness: Pt is a 28 YOWF with a hx of heroin addiction who is 28weeks gravid was admitted due to opiate withdrawal. She has been stabilized on subutex 8 mg TID. She also has reported hx of bipolar disorder, ADHD and anxiety disorder. Pt is currently taking latuda 20mg po Qdaily and zoloft 50mg po Qdaily which were started during hospitalization. She reports that mood is improved and she is feeling stable again. She denies depression or kisha symptoms. No psychosis. No SI/HI. balance staff inspector report that earlier today, pt expressed plan to leave hospital for the holidays because project [employer] cannot take her until after Thanksgiving due to space. Pt reports that she first began abusing drugs at age 16 and heroin has been drug of choice for the past two years. Also hx of cocaine and benzodiazepine abuse. Pt's boyfriend is at her side. She has other children who were removed from care. Pt states that she has decided to stay in hospital until [employer] can take her for safety. No SI/HI. She is organized in thought process. No medication side effects. Past psychiatric Hx: hx of admission for detox X1 and 3 admissions to inpatient psychiatric hospitals. Denies hx of previous suicide attempts Family psychiatric Hx: reports that everyone in her family is either struggling with current addiction or had substance abuse problems in the past. She states everyone in family is "crazy" [facility] - History History Provided By: Patient - Medical History Medical History: Medical History (Last Reviewed 08/04/18 @ 20:59 by Donna Davis MD) MDRO (multiple drug resistant organisms) resistance Onset Date: ~08/01/18 - Social History I have reviewed the patient's Social History: Yes - Tobacco History Smoking Status: Smoker, status unknown - Substance Use History Substance History: Active Abuse (hx of opiates, cocaine and benzos. see HPI) - Travel History History of Recent Travel: No Recent Travel in the [place] Within the Last 8 Weeks: No Recent Travel Out of the Country Within the Last 8 Weeks: No - Immunization History Tetanus Immunization: Unsure Hx Influenza Vaccine This Season: No Medications and Allergies Active Medications: Active Medications Acetaminophen (Tylenol) 650 mg PO Q4H PRN PRN Reason: HEADACHE Last Admin: 08/04/18 12:38 Dose: 650 mg Buprenorphine HCl (Buprenorphine) 8 mg SL TID [facility] Last Admin: 08/04/18 18:20 Dose: 8 mg Clonazepam (Klonopin) 0.5 mg PO Q6HR PRN PRN Reason: ANXIETY AND/OR INSOMNIA Last Admin: 08/04/18 12:33 Dose: 0.5 mg Famotidine (Pepcid) 20 mg PO HS [facility] Last Admin: 08/03/18 21:15 Dose: 20 mg Gabapentin (Neurontin) 300 mg PO Q6H PRN PRN Reason: RESTLESS LEGS Last Admin: 08/04/18 19:38 Dose: 300 mg Hydroxyzine Pamoate (Vistaril) 50 mg PO Q4H PRN PRN Reason: ANXIETY Last Admin: 08/02/18 19:38 Dose: 50 mg Lurasidone HCl (Latuda) 20 mg PO DAILY [facility] Last Admin: 08/04/18 09:29 Dose: 20 mg Nicotine (Habitrol 21 Mg Patch.24 Hr) 1 patch T-DERMAL DAILY [facility] Last Admin: 08/04/18 09:29 Dose: 1 patch Patch Removal (Remove Old Patch) 1 each T-DERMAL DAILY [facility] Last Admin: 08/04/18 09:30 Dose: 1 each Vit/Calcium/Iron/Folic Ac (Stuartnatal Plus 3) 1 tab PO DAILY [facility] Last Admin: 08/04/18 09:29 Dose: 1 tab Promethazine HCl (Phenergan) 25 mg PO Q6H PRN PRN Reason: NAUSEA Promethazine HCl (Phenergan Inj) 25 mg IM Q6H PRN PRN Reason: NAUSEA;IF UNABLE TO USE PO Sertraline HCl (Zoloft) 50 mg PO DAILY [facility] Last Admin: 08/04/18 09:29 Dose: 50 mg Terconazole (Terazol 3 Vag Cream) 1 appful VAGINAL HS [facility] Stop: 08/06/18 22:00 Last Admin: 08/03/18 21:16 Dose: 1 appful Trazodone HCl (Desyrel) 100 mg PO HS PRN PRN Reason: SLEEP Last Admin: 08/03/18 21:59 Dose: 100 mg Allergies Allergy/AdvReac Type Severity Reaction Status Date / Time No Known Allergies Allergy Verified 07/31/18 17:07 Home Medications Medication Instructions Recorded Confirmed Type No Known Home Medications 07/31/18 07/31/18 History Exam Vital signs: Vital Signs 08/04/18 01:36 08/04/18 01:37 08/04/18 09:24 Temperature 97.9 F 98.7 F Pulse Rate 62 57 L Respiratory Rate 16 14 Blood Pressure 103/47 L 98/53 L 08/04/18 13:51 08/04/18 13:56 08/04/18 13:57 Temperature 97.8 F Pulse Rate 60 Respiratory Rate 16 16 Blood Pressure 107/50 L 08/04/18 17:35 08/04/18 17:36 08/04/18 19:13 Temperature 98.3 F 98.0 F Pulse Rate 56 L Respiratory Rate 14 16 Blood Pressure 102/52 L 08/04/18 19:14 Temperature Pulse Rate 62 Respiratory Rate Blood Pressure 106/49 L Mental Status Examination Appearance: Appropriate Consciousness: Alert Orientation: x4 Motor Activity: Other (lying in hospital bed) Speech: Unremarkable Language: Adequate Fund of Knowledge: Adequate Attention and Concentration: Adequate Memory: Unremarkable Mood: Appropriate Affect: Appropriate Thought Process & Associations: Intact Thought Content: Appropriate Hallucination Type: None Delusion Type: None Suicidal Ideation: No Suicidal Plan: No Suicidal Intention: No Homicidal Ideation: No Homicidal Plan: No Homicidal Intention: No Insight: Fair Judgment: Impulsive Assessment and Plan - Assessment (1) Bipolar disorder Code(s): F31.9 - Bipolar disorder, unspecified Status: Acute (2) Anxiety disorder Code(s): F41.9 - Anxiety disorder, unspecified Status: Acute (3) Opioid use disorder, severe, dependence Code(s): F11.20 - Opioid dependence, uncomplicated Status: Acute - Plan Plan: Estimated LOS: [] days Continue current medication regimen. Pt is at high risk for relapse and it is recommended that she be transitioned directly to [facility], which she is agreeable to do . She does not meet BA criteria. Justification for Continued Inpatient Stay: risk of decompensation
[2018-08-05 04:04] VITALS: TEMP 98.2
[2018-08-05] MEDS: Prenatal Vit/Ca/Iron/Folic Acid Tablet PO SCH (08:20)
[2018-08-05] MEDS: Sertraline 50 MG Tablet PO SCH (08:20)
[2018-08-05 08:23] VITALS: RESP 14
[2018-08-05 08:24] VITALS: BP 106/56; PULSE 62
--- NOTE | 2018-08-05 10:58 | P.OBANTE ---
Subjective Interval History: 30 minute discussion regarding discharge to family up in [place] until can be accomodated at [facility] and [place] after Thanksgiving reviewed medications and written in her logbook She intends to return on Monday and I have her information. Apparently she has a court order to [place], which we did not know about until today. So I will address tomorrow and assure [facility] for Monday Objective Vital Signs and I&O: Vital Signs 08/04/18 13:51 08/04/18 13:56 08/04/18 13:57 Temperature 97.8 F Pulse Rate 60 Respiratory Rate 16 16 Blood Pressure 107/50 L 08/04/18 17:35 08/04/18 17:36 08/04/18 19:13 Temperature 98.3 F 98.0 F Pulse Rate 56 L Respiratory Rate 14 16 Blood Pressure 102/52 L 08/04/18 19:14 08/04/18 21:02 08/04/18 21:03 Temperature 98.1 F Pulse Rate 62 62 Respiratory Rate 16 Blood Pressure 106/49 L 100/48 L 08/05/18 04:04 08/05/18 08:00 Temperature 98.2 F 98.2 F Pulse Rate 60 62 Respiratory Rate 16 14 Blood Pressure 98/50 L 106/56 L Lab and Micro Results: Laboratory Results - last 24 hr 08/04/18 17:26 WBC 7.8 RBC 3.86 L Hgb 10.7 L Hct 31.5 L MCV 81.5 MCH 27.6 MCHC 33.9 RDW 13.5 Plt Count 319 MPV 7.9 Neut % (Auto) 65.1 Lymph % (Auto) 24.0 Carver % (Auto) 6.7 Eos % (Auto) 3.5 Baso % (Auto) 0.7 Neut # (Auto) 5.1 Lymph # (Auto) 1.9 Carver # (Auto) 0.5 Eos # (Auto) 0.3 Baso # (Auto) 0.1 WBC Differential . Differential Comment Auto diff final Physical Exam: GENERAL: Well-nourished, well-developed patient. CARDIOVASCULAR: Regular rate and rhythm without murmurs, gallops, or rubs. RESPIRATORY: Breath sounds equal bilaterally. No accessory muscle use. ABDOMEN/GI: Abdomen soft, non-tender. Fundus: [-] GENITOURINARY: External Genitalia: intact and normal in appearance Cervix: [-] Dilatation: [-] Effacement: [-] Station: [-] Presentation: [-] Membranes: [-] Uterine Contractions: [-] FHT's: Category: [-] Baseline: [-] Reactive: [-] Variability: [-] Decels: [-] EXTREMITIES: No cyanosis or edema, non-tender, without signs of DVT. Assessment and Plan - Diagnosis (1) 28 weeks gestation of Code(s): Z3A.28 - 28 weeks gestation of Status: Acute (2) Abdominal pain affecting , antepartum Code(s): O26.899 - Other specified related conditions, unspecified trimester; R10.9 - Unspecified abdominal pain Status: Acute (3) Opioid use disorder, severe, dependence Code(s): F11.20 - Opioid dependence, uncomplicated Status: Acute - Plan treat acute physical withdrawal treat infection monitor baby re evaluate in morning 08/02/18 0830 No fever or chills. Will repeat labs to see if left shift better after third dose vancomycin will stop antibiotics and prepare for discharge issues of dual diagnosis and mental health treatment to be addressed today. she will not follow through with a therapist or psychiatrist but will hopefully take a SSRNI or mood stabilizer.
[2018-08-05] MEDS: Gabapentin 300 MG Capsule PO PRN (11:15)
== END 2018-08-05 12:07 | disposition home or self-care (01) ==
LOC: H2E → HCIS 08-02 08:15 → H2E 08-02 08:23
PROVIDERS: ADMIT Obstetrics & Gynecology; ATTEND Obstetrics & Gynecology
DX: L02.92 Furuncle, unspecified; Z3A.28 28 weeks gestation of pregnancy; O99.323 Drug use complicating pregnancy, third trimester; O99.333 Smoking (tobacco) complicating pregnancy, third trimester; F31.9 Bipolar disorder, unspecified; O26.893 Other specified pregnancy related conditions, third trimester; F17.210 Nicotine dependence, cigarettes, uncomplicated; F11.20 Opioid dependence, uncomplicated; O99.713 Diseases of the skin and subcutaneous tissue complicating pregnancy, third trimester; O21.2 Late vomiting of pregnancy; F41.9 Anxiety disorder, unspecified; F25.9 Schizoaffective disorder, unspecified; O99.343 Other mental disorders complicating pregnancy, third trimester; F15.20 Other stimulant dependence, uncomplicated; I07.1 Rheumatic tricuspid insufficiency